=== PATIENT | male | born 1970 | race Caucasian/White ===

== ENCOUNTER 2018-04-07 21:25 | Inpatient (IN) ==
[2018-04-07] MEDS ORDERED: Tetanus/Diphtheria Toxoid Adult Vaccine Inj 0.5 ML Vial IM ONE (22:02)
[2018-04-07] MEDS ORDERED: Morphine Inj 4 MG/ML Vial IV.PUSH ONE (22:29)
[2018-04-07] MEDS ORDERED: Clindamycin 900 mg/NS Premix 900 MG/50 ML PIGGYBACK IV.SIG ONE (22:30)
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
[2018-04-07 23:30] LABS: Baso # (Auto) 0.1 th/mm3 (0.0-0.2); Baso % (Auto) 0.4 % (0.0-2.0); Eos % (Auto) 0.1 % (0.0-4.0); Hematocrit 50.7 % (39.0-51.0); Hemoglobin 17.8 gm/dL (13.0-17.0); Lymph # (Auto) 1.1 th/mm3 (1.0-4.8); Lymph % (Auto) 6.7 % (9.0-44.0); Mean Corpuscular HGB Conc 35.1 % (32.0-36.0); Mean Corpuscular Volume 96.9 fL (80.0-100.0); Mono # (Auto) 0.7 th/mm3 (0.0-0.9); Mono % (Auto) 4.6 % (0.0-8.0); Neut # (Auto) 14.2 th/mm3 (1.8-7.7); Neut % (Auto) 88.2 % (16.0-70.0); Platelet Count 196 th/mm3 (150-450); Red Blood Count 5.23 mil/mm3 (4.50-5.90); Red Cell Distribution Width 12.9 % (11.6-17.2); White Blood Count 16.1 th/mm3 (4.0-11.0)
[2018-04-07] MEDS ORDERED: Acetaminophen 325 MG Tablet PO PRN (23:41)
[2018-04-07] MEDS ORDERED: Naloxone Inj 0.4 MG/ML Vial IV.PUSH PRN (23:41)
[2018-04-07] MEDS ORDERED: Bisacodyl 10 MG Supp RECTAL PRN (23:41)
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
[2018-04-08 00:14] LABS: Carbon Dioxide 21.1 meq/L (21.0-32.0)
[2018-04-08 00:15] LABS: Potassium 3.9 meq/L (3.5-5.1)
[2018-04-08] MEDS: Sod Chloride 0.9% Inj 1,000 ML IV.CONT SCH ×3 (00:40→20:00)
[2018-04-08] MEDS: Morphine Sulfate Inj 2 MG/ML Vial IV.PUSH PRN ×3 (01:32→18:19)
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
[2018-04-08] MEDS: Senna/Docusate Sodium 8.6/50 MG Tablet PO SCH ×2 (09:09→20:36)
[2018-04-08 09:34] LABS: Baso % (Auto) 0.3 % (0.0-2.0); Eos # (Auto) 0.1 th/mm3 (0.0-0.4); Eos % (Auto) 0.6 % (0.0-4.0); Hematocrit 46.1 % (39.0-51.0); Hemoglobin 16.5 gm/dL (13.0-17.0); Lymph # (Auto) 1.1 th/mm3 (1.0-4.8); Lymph % (Auto) 11.9 % (9.0-44.0); Mean Corpuscular HGB Conc 35.8 % (32.0-36.0); Mean Corpuscular Hemoglobin 34.1 pg (27.0-34.0); Mean Corpuscular Volume 95.2 fL (80.0-100.0); Mean Platelet Volume 7.5 fL (7.0-11.0); Mono # (Auto) 0.8 th/mm3 (0.0-0.9); Mono % (Auto) 8.2 % (0.0-8.0); Neut # (Auto) 7.3 th/mm3 (1.8-7.7); Platelet Count 174 th/mm3 (150-450); Red Blood Count 4.84 mil/mm3 (4.50-5.90); Red Cell Distribution Width 12.8 % (11.6-17.2); White Blood Count 9.2 th/mm3 (4.0-11.0)
[2018-04-08 09:43] LABS: Alanine Aminotransferase 36 U/L (12-78)
[2018-04-08 09:45] LABS: Alkaline Phosphatase 58 U/L (45-117); Total Protein 6.9 g/dL (6.4-8.2)
[2018-04-08 09:50] LABS: Albumin 3.5 g/dL (3.4-5.0); Anion Gap 9 meq/L (5-15); Aspartate Aminotransferase 31 U/L (15-37); Blood Urea Nitrogen 11 mg/dL (7-18); Calcium 8.2 mg/dL (8.5-10.1); Carbon Dioxide 23.4 meq/L (21.0-32.0); Chloride 109 meq/L (98-107); Glomerular Filtration Rate 85 mL/min (>89); Glucose,Random 84 mg/dL (74-106); Potassium 4.2 meq/L (3.5-5.1); Sodium 141 meq/L (136-145)
[2018-04-08] MEDS ORDERED: Lidocaine PF 1% Inj 5 ML Syringe OTHER ONE (13:38)
[2018-04-08] MEDS ORDERED: Bupivacaine/Epinephrine Inj 0.25% 50 ML Vial ONE (13:51)
[2018-04-08] MEDS ORDERED: Clindamycin Inj 600 MG/4 ML Vial ONE (14:04)
[2018-04-08] MEDS ORDERED: Ciprofloxacin 400 MG/200 ML 400 MG/200 ML PIGGYBACK IV.SIG ONE (15:00)
[2018-04-08] MEDS ORDERED: fentaNYL Citrate Inj 100 MCG/2 ML Ampul ONE (16:06)
[2018-04-08] MEDS ORDERED: *Meperidine Inj 25 MG/ML Vial PERIprocedural Use ONLY ONE (16:12)
[2018-04-08] MEDS: Ciprofloxacin 400 MG/200 ML 400 MG/200 ML PIGGYBACK IV.SIG SCH (18:18)
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
[2018-04-09] MEDS: Sod Chloride 0.9% Inj 1,000 ML IV.CONT SCH ×2 (06:21→16:01)
[2018-04-09] MEDS: Ciprofloxacin 400 MG/200 ML 400 MG/200 ML PIGGYBACK IV.SIG SCH (06:21)
[2018-04-09 07:39] VITALS: RESP 16
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
[2018-04-09] MEDS: Senna/Docusate Sodium 8.6/50 MG Tablet PO SCH (08:42)
[2018-04-09 11:52] VITALS: BP 134/65; PULSE 92; TEMP 98.1; O2SAT 93
== END 2018-04-09 15:47 | disposition home or self-care (01) | DRG 133 ==
LOC: NEPD 21:25 → NEDA 23:42 → NEPGCP 04-08 01:08
PROVIDERS: ADMIT Hospitalist; ATTEND Internal Medicine
DX: F17.210 Nicotine dependence, cigarettes, uncomplicated; S01.311A Laceration without foreign body of right ear, initial encounter; Z98.1 Arthrodesis status; Z88.0 Allergy status to penicillin; V86.55XA Driver of 3- or 4- wheeled all-terrain vehicle (ATV) injured in nontraffic accident, initial encounter; S06.0X9A Concussion with loss of consciousness of unspecified duration, initial encounter
CPT/HCPCS: 70450; 70486; 72125; 80048; 80053; 85025; 90774; 90775; 90784; 96374; 96375; 99285; C8952; J0744; J2175; J2250; J2270; J2405; J2704; J3010; J7030; J7120